=== PATIENT | male | born 1990 | race Caucasian/White ===

== ENCOUNTER 2018-11-27 08:56 | Emergency (ER) | payer BC, OTHER ==
[2018-11-27 09:00] VITALS: BP 161/88
--- NOTE | 2018-11-27 09:04 | EDPHY ---
H & P Stated Complaint: epigastric/chest Pain Time Seen by Provider: 11/27/18 09:03 HPI/ROS: CHIEF COMPLAINT: Chest pain "I think I have a hiatal hernia" HISTORY OF PRESENT ILLNESS: 28-year-old male overall healthy self presents to the ER via private vehicle complaining of 3 days of chest pain which started after he ate a meal late in the day and then went to bed. He typically describes a regimented eating and sleeping schedule -- he eats dinner at 8:00 p.m. and sleeps at 10:00 p.m. however 3 days ago he ate at 9:50 p.m. and went to bed a few minutes later. He contacted his PCP ED this morning who recommend go to the ER for evaluation. For the past 3 days he notes early satiety. He is otherwise healthy, nonsmoker no drug use. He exercises regularly. He ran for 30 min before coming to the ER notes no complaints of chest pain or dyspnea beyond expected with exertion. He ran for 1 hr yesterday and was asymptomatic. Denies: Melena, hematochezia, nausea, vomiting, headache, syncope, near syncope , palpitations, dyspnea, immobilization, recent travel, history of malignancy, history of recent surgery, history of immobilization. PRIMARY CARE PROVIDER: [facility] REVIEW OF SYSTEMS: 10 systems reviewed and negative with the exception of the elements mentioned in the history of present illness PAST MEDICAL & SURGICAL HISTORY: No pertinent medical or surgical history SOCIAL HISTORY:Nonsmoker. No drug use. No cocaine use. Daily cardiovascular activity. 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 Appears to be in no acute distress. Smiling, sitting upright, shakes my hand , appears well. 2) HEAD: Normocephalic, atraumatic 3) HEENT: Pupils equal, round, reactive to light bilaterally. Sclera anicteric. Nasopharynx, oropharynx, clear, no lesions. Dry mucous membranes. 4) NECK: Full range of motion, no meningeal signs. 5) LUNGS: Clear auscultation bilaterally, no wheezes, no rhonchi, no retractions. 6) HEART: Regular rate and rhythm, no murmur, no heave, no gallop. 7) ABDOMEN: No guarding, no rebound, no focal tenderness, negative McBurney's, negative Awad's, negative Rovsing's, negative peritoneal sign, I am unable to elicit any abdominal pain. No palpable or pulsatile mass. No epigastric discomfort on palpation. 8) MUSCULOSKELETAL: Moving all extremities, no focal areas of tenderness, no obvious trauma. No peripheral edema or discoloration. Negative Homans no palpable cord 9) BACK: No CVA tenderness, no midline vertebral tenderness, no fluctuance, no step-off, no obvious trauma, no visual or palpable abnormality. 10) SKIN: No rash, no petechiae. 11) Psychiatric: Patient is oriented X 3, there is no agitation. DIFFERENTIAL DIAGNOSIS: In no particular order, including but not limited to myocardial ischemia, esophagitis, peptic ulcer disease, pulmonary embolus, chest wall pain, pleural inflammation and pulmonary infectious causes. - Personal History Current Tetanus/Diphtheria Vaccine: Unsure Current Tetanus Diphtheria and Acellular Pertussis (TDAP): Unsure - Medical/Surgical History Hx Asthma: No Hx Chronic Respiratory Disease: No Hx Diabetes: No Hx Cardiac Disease: No Hx Renal Disease: No Hx Cirrhosis: No Hx Alcoholism: No Hx HIV/AIDS: No Hx Splenectomy or Spleen Trauma: No Other PMH: denies - Social History Smoking Status: Never smoked Constitutional: Initial Vital Signs Temperature (C) 37.3 C 11/27/18 08:59 Heart Rate 75 11/27/18 08:59 Respiratory Rate 16 11/27/18 08:59 Blood Pressure 161/88 H 11/27/18 08:59 O2 Sat (%) 96 11/27/18 08:59 O2 Delivery Mode Room Air Allergies/Adverse Reactions: No Known Allergies Allergy (Unverified 11/27/18 08:59) Home Medications: Medication Instructions Recorded Pantoprazole Sodium [Protonix 40mg 40 mg PO DAILY #30 tab 11/27/18 (RX)] Ranitidine HCl [Zantac] 150 mg PO BID #30 tablet 11/27/18 Medical Decision Making - Diagnostics Imaging Results: Imaging Impressions Chest X-Ray 11/27/18 09:11 Impression: Mild peribronchial thickening which can be seen with airways disease /bronchitis. Images reviewed myself ED Course/Re-evaluation: 9:45 a.m.: Re-evaluation after GI cocktail notes resolution of symptoms. Given the patient's lack of risk factors, lack of family history, I think that cardiac , pulmonary etiology less than likely this patient. Doubt [place]. Doubt PE. We discussed more than likely esophagitis. Discussed dietary recommendations, initiation of PPI, follow up with GI. He is agreeable with this plan. Patient feels comfortable being discharged. All questions and concerns addressed by myself. Patient given my usual and customary discharge precautions and instructions regarding their clinical impression. Care of patient under supervision of secondary supervising physician Dr Enrique with whom I discussed case. - Data Points Medications Given: Discontinued Medications Al Hydroxide/Mg Hydroxide (Maalox Susp) 30 ml PO ONCE ONE Stop: 11/27/18 09:12 Last Admin: 11/27/18 09:17 Dose: 30 ml Hyoscyamine Sulfate (Levsin, Hyomax-Sl) 0.25 mg PO ONCE ONE Stop: 11/27/18 09:12 Last Admin: 11/27/18 09:17 Dose: 0.25 mg Lidocaine (Lidocaine 2% Viscous) 15 ml PO ONCE ONE Stop: 11/27/18 09:12 Last Admin: 11/27/18 09:17 Dose: 15 ml Departure - Departure Disposition: Home, Routine, Self-Care Clinical Impression: Esophagitis Condition: Good Instructions: Esophagitis (ED) Additional Instructions: Seek medical attention if you develop new or worsening chest pain, if you develop new or worsening shortness of breath, or any other symptoms that concern you. I recommend no spicy foods, I recommend low acidity foods. Referrals: Francisco Javier Styles MD [Medical Doctor] - 5-7 days, call for appt. Prescriptions: Pantoprazole Sodium [Protonix 40mg (RX)] 40 mg PO DAILY #30 tab Ranitidine HCl [Zantac] 150 mg PO BID #30 tablet
[2018-11-27] MEDS ORDERED: HYOSCYAMINE SULFATE 0.125 MG TAB PO ONE (09:11)
[2018-11-27] MEDS ORDERED: MAG HYDROX/AL HYDROX/SIMETH 30 ML UDCUP PO ONE (09:11)
[2018-11-27] MEDS ORDERED: LIDOCAINE 2% VISCOUS 15 ML UDCUP PO ONE (09:11)
== END 2018-11-27 09:50 | disposition home or self-care (01) ==
DX: K20.9 Esophagitis, unspecified (principal)